=== PATIENT | male | born 1985 | race Hispanic/Latino ===

== ENCOUNTER → 2019-07-09 | Outpatient (CLI) | payer OTHER ==
--- NOTE | 2019-07-10 13:09 | MRI ---
EXAM DESCRIPTION: Lumbar Spine w/o Contrast : Magnetic Resonance Imaging. CLINICAL HISTORY: RADICULOPATHY COMPARISON: Lumbar radiographs 06/25/2019. TECHNIQUE: Multiplanar, multiple standard sequences, non contrast MRI, lumbar spine. FINDINGS: L5-S1: The disc is well visualized on axial T2 series 501, image 3. Midline and right paracentral midline 4 mm disc bulge abutting the thecal sac. Disc is desiccated but the space preserved. Minimal narrowing of the right subarticular recess. Bilateral shortening of the pedicles. Moderate canal narrowing. Posterior elements unremarkable. Moderate to severe narrowing of the right foramen and mild to moderate narrowing of the left foramen. Rudimentary S1-S2 disc. L4-L5: Minimal disc desiccation with disc space preserved. Minimal hypertrophy posterior ligaments and hypertrophic arthrosis of the bilateral facets. Impressing on the thecal sac. Bilateral shortening of the pedicles. AP canal diameter 10 mm. Mild narrowing of the left foramen and moderate narrowing of the right foramen. L3-L4: Disc desiccation with posterior broad-based 4 mm bulge and midline hyperintense T2 annular fissure. Minimal thickening of the posterior ligaments. Bilateral shortening of the pedicles. AP canal diameter 8 cm. Mild to moderate narrowing bilateral foramina. L2-L3: Disc space preserved and normal signal in the disc. Bilateral hypertrophic facet arthrosis and posterior ligament thickening with bilateral shortening of the pedicles. AP canal diameter 11 mm.. Bilateral mild to moderate foraminal narrowing. L1-L2: Normal signal in the disc with disc space preserved. No disc bulging. Thickening of the posterior ligaments. Bilateral shortening of the pedicles. AP canal diameter 12 mm. Bilateral foramina patent. Conus terminates at this level. T12-L1: Narrowing of the disc space with normal signal in the disc. Concavities in the endplates. Minimal posterior disc bulge but not abutting the cord. Bilateral pedicle shortening. AP canal diameter 13 mm. Bilateral foramina are patent. No scoliosis or significant spondylolisthesis. Paravertebral soft tissues negative.. Distal cord normal signal and caliber. Otherwise normal marrow signal in the remaining vertebral bodies and the posterior elements. Vertebral bodies are not compressed at any level. IMPRESSION: 1. Multiple discs are desiccated with minimal bulging. Annular fissure L3-L4 but no herniation at any level. Bilateral pedicle shortening and thickening of the posterior flavum ligaments contributing to canal narrowing at multiple levels. Also multiple levels of bilateral or unilateral foraminal narrowing. 2. L5-S1 right paracentral midline disc bulge abutting the thecal sac and the right subarticular recess and descending right S1 nerve. Moderate to severe narrowing of the right foramen. 3. Multifactorial borderline mild central canal stenosis at L4-L5. 4. Multifactorial mild to moderate canal stenosis at L3-L4 centrally. Electronically signed by: Kvng Martin MD 07/10/2019 1:07 PM CDT
== END ==
LOC: MRI 13:04
PROVIDERS: ATTEND Nurse Practitioner Family
DX: M51.16 Intervertebral disc disorders with radiculopathy, lumbar region (principal); M48.061 Spinal stenosis, lumbar region without neurogenic claudication